=== PATIENT | female | born 2000 ===

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

== ENCOUNTER → 2018-01-13 | Outpatient (CLI) | payer BC, OTHER ==
--- NOTE | 2018-01-13 09:14 | DIAGNOSTIC IMAGING REPORT ---
R SHOULDER MIN 2 VIEWS HISTORY: 17 years-old Female RIGHT SHOULDER INSTABILITY acute right shoulder pain COMPARISON: None available TECHNIQUE: 3 views of the right shoulder FINDINGS: No acute fracture, dislocation, significant degenerative changes or opaque foreign body. Bone mineralization appears to be within normal limits. The imaged lung oleary appear to be clear. IMPRESSION: No acute fracture or dislocation. The above report was generated using voice recognition software. It may contain grammatical, syntax or spelling errors. Electronically signed by: Glenn London M.D. 01/13/2018 9:12 AM Dictated Date/Time: 01/13/2018 9:09 AM
== END | disposition home or self-care (01) ==
LOC: C.RDSM 07:38
PROVIDERS: ATTEND Student in an Organized Health Care Education/Training Program
DX: M25.311 Other instability, right shoulder (principal)